=== PATIENT | female | born 1980 ===

== ENCOUNTER 2018-03-04 18:57 | Outpatient (CLI) | payer OTHER | END 2018-03-04 19:21 | disposition home or self-care (01) | LOC: RAD 18:57 | DX: J34.89 Other specified disorders of nose and nasal sinuses (principal); J01.31 Acute recurrent sphenoidal sinusitis; J34.2 Deviated nasal septum; R05 Cough ==

== ENCOUNTER 2021-04-23 08:00 | Outpatient (CLI) | payer OTHER | END 2021-04-23 08:30 | disposition home or self-care (01) | LOC: PPH VACUNA 08:00 | PROVIDERS: ATTEND Emergency Medicine Pediatric Emergency Medicine | DX: Z23 Encounter for immunization (principal) ==

== ENCOUNTER 2023-12-04 08:17 | Outpatient (CLI) | payer OTHER ==
[2023-12-04 10:15] LABS: HEMATOCRIT 33.2 % (36.0-45.00); HEMOGLOBIN 10.6 g/dL (12.0-15.00); MEAN CELL VOLUME 73.6 fL (80.00-100.00); MEAN CORPUSCULAR HEMOGLOBIN 23.5 pg (27.00-32.0); MEAN CORPUSCULAR HGB CONC 31.9 g/dl (32.0-36.0); PLATELET COUNT 258 K/uL (150-450); RED BLOOD COUNT 4.51 M/uL (4.00-6.00); RED CELL DISTRIBUTION WIDTH 17.2 % (11.5-14.5)
[2023-12-04 11:53] LABS: MANUAL PLATELET COUNT 390; PLATELET ESTIMATE NORMAL (NORMAL)
[2023-12-04 12:01] LABS: FOLIC ACID > 20.00 ng/ml (4.78-20)
[2023-12-04 12:02] LABS: % SATURACION 5.7 % (15-50); ALBUMIN 4.1 gm/dL (3.4-5.0); BILIRUBIN TOTAL 0.45 mg/dL (0.3-1.2); CREATININE SERUM 0.65 mg/dL (0.55-1.02); GFR 99.02; GLOBULINA 3.9 G/DL (2.4-3.5); POTASSIUM 4.29 mEq/L (3.5-5.1); TSH 2.18 uIU/mL (0.358-3.74)
[2023-12-04 12:03] LABS: FERRITIN 3.2 NG/ML (8-252)
[2023-12-05 15:10] LABS: hgb f 0 % (0.0-2.0); hgb s 0 % (0.0)
[2023-12-05 17:06] LABS: ERYTHROPOIETIN 31.3 mIU/mL (2.6-18.5)
[2023-12-07 15:06] LABS: g6pd quant 263 (127-427); rbc 4.56 x10E6/uL (3.77-5.28)
[2023-12-07 23:04] LABS: PARIETAL CELL ANTIBODIES 1.2 Units (0.0-20.0)
== END 2023-12-04 08:32 | disposition home or self-care (01) ==
LOC: LAB 08:17
PROVIDERS: ATTEND Internal Medicine Hematology & Oncology
DX: D50.8 Other iron deficiency anemias (principal); D35.2 Benign neoplasm of pituitary gland; I10 Essential (primary) hypertension; R74.02 Elevation of levels of lactic acid dehydrogenase [LDH]; K76.89 Other specified diseases of liver; D55.0 Anemia due to glucose-6-phosphate dehydrogenase [G6PD] deficiency; D51.0 Vitamin B12 deficiency anemia due to intrinsic factor deficiency; D63.1 Anemia in chronic kidney disease; E03.8 Other specified hypothyroidism; E06.3 Autoimmune thyroiditis

== ENCOUNTER → 2024-05-21 08:21 | Outpatient (CLI) | payer OTHER ==
[2024-05-21 09:46] LABS: HEMATOCRIT 32.3 % (36.0-45.00); HEMOGLOBIN 10.2 g/dL (12.0-15.00); MEAN CELL VOLUME 71.8 fL (80.00-100.00); MEAN CORPUSCULAR HEMOGLOBIN 22.5 pg (27.00-32.0); MEAN CORPUSCULAR HGB CONC 31.4 g/dl (32.0-36.0); PLATELET COUNT 220 K/uL (150-450); RED CELL DISTRIBUTION WIDTH 16.4 % (11.5-14.5)
[2024-05-21 10:33] LABS: ALBUMIN 3.8 gm/dL (3.4-5.0); BILIRUBIN TOTAL 0.61 mg/dL (0.3-1.2); CALCIUM 9.1 mg/dL (8.5-10.1); CREATININE SERUM 0.51 mg/dL (0.55-1.02); GLOBULINA 3.6 G/DL (2.4-3.5); POTASSIUM 4.18 mEq/L (3.5-5.1); TOTAL PROTEIN 7.4 gm/dL (6.4-8.2)
[2024-05-21 11:21] LABS: FOLIC ACID > 20.00 ng/ml (4.78-20)
[2024-05-21 12:41] LABS: MANUAL PLATELET COUNT 366
[2024-05-21 12:43] LABS: PLATELET ESTIMATE NORMAL (NORMAL)
== END | disposition home or self-care (01) ==
LOC: LAB 08:21
PROVIDERS: ATTEND Internal Medicine Hematology & Oncology
DX: D35.2 Benign neoplasm of pituitary gland (principal); D50.8 Other iron deficiency anemias; R79.9 Abnormal finding of blood chemistry, unspecified; I10 Essential (primary) hypertension; R74.02 Elevation of levels of lactic acid dehydrogenase [LDH]; K76.89 Other specified diseases of liver; D63.1 Anemia in chronic kidney disease; D51.8 Other vitamin B12 deficiency anemias